=== PATIENT | female | born 1960 | race Asian ===

== ENCOUNTER 2020-08-18 11:46 | Emergency (ER) | payer SELFPAY ==
[~2020-08-18] VITALS: Ht 167.6 cm; Wt 69.4 kg
[2020-08-18 14:38] VITALS: BP 114/75
== END 2020-08-18 14:38 | disposition home or self-care (01) ==
LOC: ED 11:46
DX: S46.911A Strain of unspecified muscle, fascia and tendon at shoulder and upper arm level, right arm, initial encounter (principal); I10 Essential (primary) hypertension; W20.8XXA Other cause of strike by thrown, projected or falling object, initial encounter; Y93.89 Activity, other specified; Y92.89 Other specified places as the place of occurrence of the external cause; Y99.8 Other external cause status
CPT/HCPCS: 90715